=== PATIENT | male | born 1980 | race Caucasian/White ===

== ENCOUNTER 2020-03-30 12:56 | Emergency (ER) | payer MEDICAID ==
[~2020-03-30] VITALS: Ht 190.5 cm; Wt 107.0 kg
[~2020-03-30 12:56] MED LIST: ONDA4TAB6 PO
[2020-03-30 13:00] VITALS: BP 135/84
--- NOTE | 2020-03-30 13:44 | NUR ---
PATIENT DENIES ANY USE OF STIMULANTS LEGAL OR NOT :REGARDING ST
[2020-03-30] MEDS ORDERED: MUPI22OI30 TOP (14:26)
[2020-03-30] MEDS ORDERED: SULF1TAB49 PO (14:26)
[2020-03-30] MEDS ORDERED: CEPH250T PO (14:26)
== END 2020-03-30 14:49 | disposition home or self-care (01) ==
LOC: ER 12:57
DX: L01.09 Other impetigo (principal); B95.61 Methicillin susceptible Staphylococcus aureus infection as the cause of diseases classified elsewhere; M79.89 Other specified soft tissue disorders; F19.90 Other psychoactive substance use, unspecified, uncomplicated; Z72.89 Other problems related to lifestyle; Z79.2 Long term (current) use of antibiotics; Z79.899 Other long term (current) drug therapy
CPT/HCPCS: 99283

== ENCOUNTER 2020-11-01 11:10 | Emergency (ER) | payer MEDICAID ==
[~2020-11-01] VITALS: Ht 180.3 cm; Wt 96.6 kg
[2020-11-01 11:13] VITALS: BP 136/87
[2020-11-01] MEDS ORDERED: CEPH250T PO (13:37)
[2020-11-01] MEDS ORDERED: SULF1TAB45 PO (13:37)
== END 2020-11-01 13:55 | disposition home or self-care (01) ==
LOC: ER 11:11
DX: L02.01 Cutaneous abscess of face (principal)
CPT/HCPCS: 99283

== ENCOUNTER 2021-03-16 11:27 | Emergency (ER) | payer MEDICAID ==
[~2021-03-16] VITALS: Ht 188 cm; Wt 81.8 kg
[2021-03-16] MEDS ORDERED: ondansetron 4mg rapidly disintigrating tab PO ONE (11:45)
[2021-03-16] MEDS ORDERED: LIDOcaine 1% W/epiNEPHrine 1:200,000 10ml vial IJ ONE (11:45)
[2021-03-16] MEDS ORDERED: morphine 4 MG/ML inj SYRINge IM ONE (11:45)
[2021-03-16] MEDS ORDERED: TETanus/Pertussis (Acell)/Diphther VAC/PF (Tdap-Adult) 0.5ml syringe IMVAC ONE (11:45)
[2021-03-16] MEDS ORDERED: bacitracin 15gm ointment TP ONE (11:45)
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
[2021-03-16] MEDS ORDERED: morphine 4 MG/ML inj SYRINge IV PRN (12:10)
[2021-03-16] MEDS ORDERED: ondansetron/PF 4mg/2ml inj IV ONE (12:10)
[2021-03-16] MEDS ORDERED: CefTRIAXone 2gm/D5W 50ml BAG 50 ML IV ONE (12:10)
[2021-03-16] MEDS ORDERED: normal saline 1000ML IV soln IVB ONE (12:10)
[2021-03-16 12:43] LABS: BASOPHILS % (AUTO) 0.2 % (0-1); EOSINOPHILS # (AUTO) 0.1 X10'3 (0-0.9); EOSINOPHILS % (AUTO) 0.8 % (0-6); HEMATOCRIT 37.5 % (42.0-52.0); HEMOGLOBIN 12.8 g/dl (14.0-17.9); LYMPHOCYTES # (AUTO) 1.1 X10'3 (1.1-4.8); LYMPHOCYTES % (AUTO) 11.6 % (21-51); MEAN CORPUSCULAR HEMOGLOBIN 30.2 PG (27.0-31.0); MEAN CORPUSCULAR VOLUME 88.7 FL (78-98); MEAN PLATELET VOLUME 7.3 FL (7.4-10.4); MONOCYTES # (AUTO) 0.7 X10'3 (0-0.9); MONOCYTES % (AUTO) 7.5 % (2-12); NEUTROPHILS # (AUTO) 7.2 X10'3 (1.8-7.7); NEUTROPHILS % (AUTO) 79.9 % (42-75); PLATELET COUNT 217 X10'3 (140-440); RED BLOOD COUNT 4.22 X10'6 (4.70-6.10); RED CELL DISTRIBUTION WIDTH 12.7 % (11.5-14.5)
[2021-03-16 12:59] LABS: ALANINE AMINOTRANSFERASE 41 U/L (12-78); ALBUMIN 3.5 G/DL (3.4-5.0); ALBUMIN/GLOBULIN RATIO 0.9 (1.1-1.5); ALKALINE PHOSPHATASE 86 IU/L (46-116); ANION GAP 6 (8-16); ASPARTATE AMINO TRANSFERASE 39 U/L (10-37); BILIRUBIN,TOTAL 0.3 MG/DL (0.1-1.0); BLOOD UREA NITROGEN 19 MG/DL (7-18); BUN/CREATININE RATIO 17.4 (5.4-32.0); CHLORIDE 105 MMOL/L (99-107); CREATININE 1.09 MG/DL (0.60-1.10); GLUCOSE 116 MG/DL (70-104); LIPASE 206 U/L (73-393); POTASSIUM 3.8 MMOL/L (3.5-5.1); SODIUM 142 MMOL/L (135-145); TOTAL CARBON DIOXIDE 30.8 MMOL/L (24-32); TOTAL PROTEIN 7.5 G/DL (6.4-8.2); eGFR 75 ML/MIN
[2021-03-16 13:20] LABS: ETHANOL < 0.010 GM/DL (0.0-0.010)
--- NOTE | 2021-03-16 14:15 | NUR ---
SHASCOM AT BEDSIDE.
[2021-03-16 14:18] VITALS: BP 139/90
[2021-03-16 14:56] LABS: COLOR,URINE YELLOW (Yellow); UA COLLECTION TYPE URINAL
[2021-03-16 14:57] LABS: CLARITY,URINE CLOUDY (Clear); GLUCOSE, URINE NEGATIVE (Neg); KETONES,URINE NEGATIVE (Neg); LEUKOCYTE ESTERASE ,URINE NEGATIVE (Neg); NITRITES, URINE NEGATIVE (Neg); OCCULT BLOOD,URINE NEGATIVE (Neg); PROTEIN,URINE NEGATIVE (Neg); UROBILINOGEN,URINE 0.2 E.U/dL (0.2-1.0)
[2021-03-16 14:58] LABS: AMORPHOUS PHOSPHATES 2+
[2021-03-16 15:00] LABS: BACTERIA,URINE NONE SEEN /HPF (Neg); MUCUS STRANDS NONE SEEN /LPF (Neg); RBC,URINE NONE SEEN /HPF (0-2); SQUAMOUS EPITHELIAL CELL,UR FEW /LPF (FEW); WBC,URINE 0-4 /HPF (0-4)
== END 2021-03-16 14:53 | disposition short-term general hospital (02) ==
LOC: ER 11:28
DX: S02.32XA Fracture of orbital floor, left side, initial encounter for closed fracture (principal); S02.842A Fracture of lateral orbital wall, left side, initial encounter for closed fracture; R22.0 Localized swelling, mass and lump, head; Y04.0XXA Assault by unarmed brawl or fight, initial encounter; Y93.89 Activity, other specified; Y92.89 Other specified places as the place of occurrence of the external cause; Y99.8 Other external cause status
CPT/HCPCS: 12013; 36415; 70450; 70486; 72125; 80053; 80320; 81001; 83690; 85025; 85610; 86885; 86900; 86901; 90715; 93005; 96365; 96372; 96375; 99291; J0696; J2270; J7030

== ENCOUNTER 2023-01-18 19:36 | Emergency (ER) | payer MEDICAID ==
[~2023-01-18] VITALS: Ht 188 cm; Wt 84.1 kg
[2023-01-18 20:13] VITALS: TEMP 98.5
[2023-01-18] MEDS ORDERED: naloxone 2mg/2ml inj IM STA (22:11)
[2023-01-18 22:30] VITALS: BP 104/64; PULSE 58; RESP 10; O2SAT 99
== END 2023-01-18 23:36 | disposition left against medical advice (07) ==
LOC: ER 19:37
DX: T40.411A Poisoning by fentanyl or fentanyl analogs, accidental (unintentional), initial encounter (principal); R41.82 Altered mental status, unspecified; Y92.89 Other specified places as the place of occurrence of the external cause
CPT/HCPCS: 96372; 99283; J2310